=== PATIENT | male | born 1935 | race Caucasian/White ===

== ENCOUNTER 2017-08-09 10:50 | Day surgery (SDC) | payer MEDICARE, BC ==
[2017-08-08 12:40] VITALS: BMI 30.2
[2017-08-09 11:35] LABS: #Basophils 0.1 thou/uL (0.0-0.2); #Eosinphils 0.4 thou/uL (0.0-0.7); #Lymphocytes 0.8 thou/uL (1.20-3.40); #Monocytes 0.8 thou/uL (0.11-0.59); #Neutrophils 4.4 thou/uL (1.40-6.50); %Basophils 0.9 % (0.0-1.0); %Eosinophils 5.6 % (0.0-10.0); %Lymphocytes 12.3 % (21.0-51.0); Hematocrit 37.2 % (42.0-52.0); Mean Platelet Volume 8.9 fL (7.4-10.4); Red Blood Cell (RBC) Count 3.63 mill/uL (4.70-6.10); White Blood Cell (WBC) Count 6.4 thou/uL (4.8-10.8)
[2017-08-09 11:53] LABS: Anion Gap 13 mmol/L (10-20); BUN (Urea Nitrogen) 49 mg/dL (8.4-25.7); Calc. Creatinine Clearance 51 mL/min (70-130); Calcium 9.8 mg/dL (7.8-10.44); Carbon Dioxide 26 mmol/L (23-31); Chloride 104 mmol/L (98-107); Estimated GFR-MDRD 46
[2017-08-09 12:18] LABS: PTT 49.6 SEC (22.9-36.1); Prothrombin Time 27.8 SEC (12.0-14.7)
[2017-08-09] MEDS ORDERED: Bacitracin Zinc Ointment 30 gm TUBE ONE (12:52)
[2017-08-09] MEDS ORDERED: Lidocaine 1% w/Epinephrine 1:200K 30 ML VIAL ONE (12:52)
[2017-08-09] MEDS ORDERED: Fentanyl 100 MCG/2 ML VIAL ONE ×2 (12:58→15:04)
[2017-08-09] MEDS ORDERED: Midazolam HCl 2 mg/2 ml Vial ONE (12:58)
[2017-08-09] MEDS ORDERED: Propofol 200 MG/20 ML VIAL ONE (13:13)
[2017-08-09] MEDS ORDERED: Lidocaine 1% PF 5 ML VIAL ONE (13:13)
[2017-08-09] MEDS ORDERED: PHENYLEPHRINE-NS 100 MCG/ML 10 ML SYRINGE ONE (13:13)
[2017-08-09] MEDS ORDERED: ePHEDrine/0.9% NaCl/PF SYRINGE 50 mg/10 ml ONE (13:13)
--- NOTE | 2017-08-09 18:34 | OP ---
DATE OF PROCEDURE: 08/09/2017 PREOPERATIVE DIAGNOSES: 1. 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 2. 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 POSTOPERATIVE DIAGNOSES: 1. 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 2. 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 PROCEDURES PERFORMED: 1. Excision of left base malignant basal cell carcinoma of left preauricular space with cervicofaci al advancement flap measuring approximately 6 cubic cm with complex closure. 2. Excision of right 7 cm malignant squamous methodist lesion with split-thickness skin graft. 3. Nunez of split-thickness skin graft from right shoulder. PROCEDURE IN DETAIL: After consent was obtained, the patient was identified, brought to the operati ng room and placed on the table in supine position. General anesthesia was obtained. The patient w as positioned for surgery. The left ear was evaluated initially. The malignancy was identified deedee t involved the tragus as well as the preauricular space. A complex incision was made in three dimen sions to remove the tumor in the involved skin. The ultimate defect was approximately 6 cm. We the n advanced cervicofacial advancement flap using relaxed incisions along the preauricular space and e xtending into the upper neck. We then undermined the skin and rotated into the defect and closed in a complex layered with 5-0 Monocryl to be used for dermal layer and 6-0 Prolene for the skin. We t hen turned our attention to the right side where the large infiltrative squamous tumor was identifie d. Free margins were obtained in the defect and the specimen was sent for histologic evaluation. F ree margins were obtained. We then obtained hemostasis and harvested a similarly sized 7 cm split-t hickness skin graft from the right shoulder with a 10 blade. This was done under freehand fashion a nd left the dermis intact. We then placed the skin over the defect and secured in place with a rapi dly absorbing gut. Bolster sutures were made of silk were then placed and a bolster was positioned and secured in place with the silks. We then turned our attention to the shoulder wound where the d ermis was removed and the wound closed with a running 5-0 nylon suture. The patient was then awaken ed, extubated, and taken to recovery where he remained in stable condition prior to discharge home.
== END 2017-08-09 16:37 | disposition home or self-care (01) ==
LOC: SDC 10:50
PROVIDERS: ATTEND Specialist
PROC: 0HX3XZZ Transfer Left Ear Skin, External Approach (ICD-10-PCS; principal; 2017-08-09)
PROC: 0HB3XZZ Excision of Left Ear Skin, External Approach (ICD-10-PCS; 2017-08-09)
PROC: 0HR1X74 Replacement of Face Skin with Autologous Tissue Substitute, Partial Thickness, External Approach (ICD-10-PCS; 2017-08-09)
PROC: 0HBBXZZ Excision of Right Upper Arm Skin, External Approach (ICD-10-PCS; 2017-08-09)
DX: C44.219 Basal cell carcinoma of skin of left ear and external auricular canal (principal); D04.39 Carcinoma in situ of skin of other parts of face; D64.9 Anemia, unspecified; I48.91 Unspecified atrial fibrillation; I11.0 Hypertensive heart disease with heart failure; I50.9 Heart failure, unspecified; E03.9 Hypothyroidism, unspecified; H35.30 Unspecified macular degeneration; Z79.2 Long term (current) use of antibiotics; Z79.01 Long term (current) use of anticoagulants; Z79.899 Other long term (current) drug therapy; Z88.1 Allergy status to other antibiotic agents; Z98.49 Cataract extraction status, unspecified eye; Z95.2 Presence of prosthetic heart valve; Z95.0 Presence of cardiac pacemaker; Z90.89 Acquired absence of other organs; Z90.49 Acquired absence of other specified parts of digestive tract; Z98.890 Other specified postprocedural states; Z91.82 Personal history of military deployment; Z82.3 Family history of stroke; Z82.49 Family history of ischemic heart disease and other diseases of the circulatory system
CPT/HCPCS: 36415; 80048; 85025; 85610; 85730; 88305; 88331; 88332; 93005; 93010; J2001; J2250; J2704; J3010